=== PATIENT | male | born 1980 | race Caucasian/White ===

== ENCOUNTER 2016-05-25 16:15 | Emergency (ER) | payer OTHER ==
[~2016-05-25] VITALS: Ht 172.7 cm; Wt 75.0 kg
[2016-05-25 16:19] VITALS: BP 117/58; PULSE 70; RESP 15; O2SAT 100
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
== END 2016-05-25 18:58 | disposition home or self-care (01) ==
LOC: SED 16:15 → EDBD 16:15 → SED 18:58
DX: S16.1XXA Strain of muscle, fascia and tendon at neck level, initial encounter (principal); V03.10XA Pedestrian on foot injured in collision with car, pick-up truck or van in traffic accident, initial encounter; Y92.410 Unspecified street and highway as the place of occurrence of the external cause; Y93.89 Activity, other specified; Y99.8 Other external cause status; R51 Headache; M79.602 Pain in left arm; F10.920 Alcohol use, unspecified with intoxication, uncomplicated; F19.20 Other psychoactive substance dependence, uncomplicated; F17.200 Nicotine dependence, unspecified, uncomplicated

== ENCOUNTER 2016-06-08 10:01 | Emergency (ER) | payer OTHER ==
[2016-06-08 10:06] VITALS: BP 113/67; PULSE 63; RESP 18; O2SAT 97
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
[2016-06-08] MEDS ORDERED: LORazepam 2 mg Tablet PO ONE (10:25)
[2016-06-08 11:11] LABS: BASOPHILS % (AUTO) 1.1 % (0-3); EOSINOPHILS % (AUTO) 2.3 % (0-5); MONOCYTES % (AUTO) 7.7 % (4-12); Mean Corpuscular Hemoglobin 31.7 pg (27.0-35.0); Mean Corpuscular Volume 91.6 fL (81-100); NEUTROPHILS % (AUTO) 66.7 % (40-74); Platelet Count 312 bil/L (150-400)
[2016-06-08 19:11] VITALS: BP 124/70; PULSE 86; RESP 16; O2SAT 99
[2016-06-08] MEDS ORDERED: CYCL10TA9 PO (20:51)
[2016-06-08] MEDS ORDERED: EFAV1TAB PO (20:51)
[2016-06-09] MEDS ORDERED: diphenhydrAMINE 50 mg Capsule PO ONE (00:20)
[2016-06-09 03:14] VITALS: BP 111/54; PULSE 61; RESP 15; O2SAT 99
[2016-06-09 06:27] VITALS: BP 124/63; PULSE 77; RESP 16; O2SAT 98
== END 2016-06-09 06:28 | disposition home or self-care (01) ==
LOC: SED 10:01
DX: F15.10 Other stimulant abuse, uncomplicated (principal); F17.200 Nicotine dependence, unspecified, uncomplicated; Z88.0 Allergy status to penicillin

== ENCOUNTER 2016-06-15 22:08 | Emergency (ER) | payer OTHER ==
[~2016-06-15] VITALS: Ht 172.7 cm; Wt 70.5 kg
[~2016-06-15 22:08] MED LIST: CYCL10TA9 PO; EFAV1TAB PO
[2016-06-15 22:11] VITALS: BP 109/84; PULSE 90; RESP 18; O2SAT 100
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
== END 2016-06-16 03:22 | disposition home or self-care (01) ==
LOC: SED 22:08
DX: S16.1XXA Strain of muscle, fascia and tendon at neck level, initial encounter (principal); S20.222A Contusion of left back wall of thorax, initial encounter; Y04.0XXA Assault by unarmed brawl or fight, initial encounter; Y93.9 Activity, unspecified; Y92.9 Unspecified place or not applicable; Y99.8 Other external cause status; F17.200 Nicotine dependence, unspecified, uncomplicated; Z88.0 Allergy status to penicillin

== ENCOUNTER 2016-07-06 14:29 | Emergency (ER) | payer OTHER ==
[2016-07-06 14:37] VITALS: BP 114/69; PULSE 70; RESP 16; O2SAT 98
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
[2016-07-06] MEDS ORDERED: Haloperidol 5 mg/mL Inj IM PRN (17:10)
[2016-07-06 17:33] LABS: Mean Corpuscular Hemoglobin 31.2 pg (27.0-35.0); Platelet Count 495 bil/L (150-400)
[2016-07-06 17:49] LABS: BASOPHILS % (AUTO) 0 % (0-3); EOSINOPHILS % (AUTO) 0 % (0-5); MONOCYTES % (AUTO) 2 % (4-12); NEUTROPHILS % (AUTO) 55 % (40-74)
[2016-07-06 19:59] VITALS: BP 102/56; PULSE 64; RESP 20; O2SAT 100
[2016-07-07 06:28] VITALS: BP 106/72; PULSE 80; O2SAT 98
[2016-07-07] MEDS ORDERED: ALPRAZolam 0.5 mg Tablet PO ONE (08:40)
[2016-07-07] MEDS ORDERED: OLANZapine Zydis ODT 5 mg Tablet PO ONE ×2 (08:40)
[2016-07-07 11:27] VITALS: BP 124/75; PULSE 88
== END 2016-07-07 11:25 | disposition home or self-care (01) ==
LOC: SED 14:29
DX: F15.20 Other stimulant dependence, uncomplicated (principal); F17.200 Nicotine dependence, unspecified, uncomplicated; Z88.0 Allergy status to penicillin
CPT/HCPCS: 36415; 80053; 81002; 84443; 85025; 99284; G0480

== ENCOUNTER 2016-07-17 07:47 | Emergency (ER) | payer OTHER ==
[~2016-07-17] VITALS: Ht 170.2 cm; Wt 78.6 kg
[2016-07-17 07:53] VITALS: BP 119/76; PULSE 90; RESP 18; O2SAT 100
--- NOTE | 2016-07-17 08:01 | ED.REPORT ---
HPI-Psychiatric Illness Date of Service Jul 17, 2016 ED Provider: Lashawn Flores MD 35 year old male with a history of methamphetamine abuse and HIV presents to the ER brought in by police for hearing voices and agitation. Patient has a card for [facility] and states that he missed his appointment, and that he has been trespassed and has been unable to shower. He continues to mutter, complaining incomprehensibly. Associated decreased food and fluid intake lately. History is limited due to patient's agitation. Nursing Notes Stated Complaint: PSYCH Chief Complaint: Substance Abuse Nursing Notes Reviewed: Yes Allergies: Coded Allergies: Penicillins (Verified Allergy, Unknown, 06/15/16) Scheduled Efavirenz/Emtricitab/Tenofovir (Atripla) 1 Each Tablet 1 MG PO DAILY Scheduled PRN Cyclobenzaprine (Cyclobenzaprine) 10 Mg Tablet 10 MG PO TID PRN PRN spasms General Time Seen by MD: 08:00 Chief Complaint Bizarre behavior, Hallucinations, auditory Hx Obtained From: Patient, Police Arrived By: Police Onset Occurred: Just prior to arrival Symptom Duration: Since onset Associated with: Reports: Agitation Pertinent Negative: Pt denies other symptoms Related History: Reports: Illicit drug use Similar Sx Previous: Yes Risk-Psychiatric Illness Suicide Risk Stratification Suicide Risk Factors - Adult: : Substance abuse RF Statements: Risk factors reviewed Past Medical History Past Medical History HIV - on Atripla (patient not forthcoming and refused to discusss this issue or other medical conditions) Past Surgical History None reported Smoking History Current Every Day Smoker Social History Alcohol Use: "Social" Drug Use: Meth, THC Other Social History: Local resident Ambulatory Status Independent Review of Systems ROS is limited due to patient's agitation. Psychiatric: Reports: Agitation, Hallucinations, auditory Complete sys rev & neg: except as marked. Physical Exam Initial Vital Signs Vital Signs (First) Date Time Temp Pulse Resp B/P Pulse Ox O2 Delivery O2 Flow Rate FiO2 07/17/16 07:53 36.0 90 18 119/76 100 Room Air Initial VS: Reviewed Head / Eyes: Atraumatic, Normocephalic Neck: Supple, Non-tender, Full range of motion Extremities: Vascular intact, Neuro intact, No swelling, No tenderness General/Constitutional: Awake, Alert, Well developed, Well nourished Behavior: Positive: Agitated Neurologic: Oriented X3, Speech NL, No motor deficits, No sensory deficits Able to ambulate without difficulty. Psychiatric: Not suicidal, Not homicidal, Cognitive function NL Agitated. Pacing. No eye contact. Respiratory / Chest: Breath sounds NL, Breath sounds = bilat, No respiratory distress, No rales, No rhonchi, No wheezing Cardiovascular: Regular rhythm, Heart sounds NL, Peripheral circulation NL Heart Rate / Rhythm: Positive: Tachycardia Wrist / Hand: Full range of motion, Neurologic intact, Vascular intact 1 cm laceration to the Right distal forefinger. Dirty, but not requiring sutures. I have asked him to clean the wound thoroughly. Ankle / Foot: Full range of motion, Neurologic intact, Vascular intact Mild erythema overlying the medial aspect of right ankle, outlined with pen previously, well within the lines. Interpretation & Diagnostics Interpretation & Diagnostics: utox: meth and benzo Lab Results Interpretation Test 07/17/16 09:52 Hold Urine Received (Received) Re-Eval/Medical Decision Re-Evaluation/Progress #1: Time of Eval: 08:35 Re-Evaluation/Progress Note: Face to face evaluation. Patient has become increasingly agitated, responding to external stimuli. Dangerous to himself and others. Code morris called, patient escorted to P1. Seclusion orders placed. Declined breathalyzer and declined voiding for urinalysis. Re-Evaluation/Progress #2: Time of Eval: 15:39 )( Re-Eval Psychiatric: No danger to self, No danger to others, No suicidal ideation, No homicidal ideation Patient Status: Condition improved Re-Evaluation/Progress Note: Appropriate good eye contact interactive name of his previous behavior is exhibited. Certainly safe for discharge home. 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 He had some Zyprexa in the emergency department, was able to sleep for a few hours, have gotten some food, and are much improved. Methamphetamine is quite literally making you crazy and will kill you. I hope you are able to remain sober and get on with the rest of your life I wish you the best Referrals: [facility] (PCP) Scribe Attestation Portions of this note were transcribed by Ollie No. I, Dr. Flores, personally performed the history, physical exam and medical decision-making; I reviewed and confirmed the accuracy of the information in the transcribed note. Signed by: Saad Ng, 07/17/2016 and 13:10 Lashawn Flores MD Jul 17, 2016 08:00 OLLIE NO Jul 17, 2016 08:04
[2016-07-17] MEDS ORDERED: LORazepam 2 mg Tablet PO ONE (08:20)
[2016-07-17] MEDS ORDERED: OLANZapine Zydis ODT 5 mg Tablet PO ONE (08:35)
[2016-07-17 11:41] VITALS: BP 113/66; PULSE 53; RESP 16; O2SAT 99
[2016-07-17 16:29] VITALS: BP 122/85; PULSE 115; RESP 22; O2SAT 99
== END 2016-07-17 16:07 | disposition home or self-care (01) ==
LOC: SED 07:47
DX: F15.10 Other stimulant abuse, uncomplicated (principal); F09 Unspecified mental disorder due to known physiological condition; F17.200 Nicotine dependence, unspecified, uncomplicated; B20 Human immunodeficiency virus [HIV] disease; Z88.0 Allergy status to penicillin

== ENCOUNTER 2016-08-04 16:55 | Emergency (ER) | payer OTHER ==
[~2016-08-04] VITALS: Ht 165.1 cm; Wt 62.7 kg
[2016-08-04 17:10] VITALS: BP 99/63; PULSE 73; RESP 17; O2SAT 98
--- NOTE | 2016-08-04 17:32 | ED.REPORT ---
[facility]-Medical Clearance Date of Service Aug 04, 2016 ED Provider: Jermain Jordan PA-C Manuel is a 35-year-old male brought in for medical clearance to [facility]. There is concern regarding the condition of his feet. The patient states a painful, that he is homeless has been sleeping outside. Admits to methamphetamine use. He says that his feet have been wet "off and on." He is a somewhat difficult and scattered historian, but listed diagnosis of bipolar disorder as well as HIV. He states he is up-to-date on his medications. Nursing Notes Stated Complaint: FIT FOR SHELTER Chief Complaint: General Complaint Nursing Notes Reviewed: Yes Allergies: Coded Allergies: Penicillins (Verified Allergy, Unknown, 06/15/16) Scheduled Efavirenz/Emtricitab/Tenofovir (Atripla) 1 Each Tablet 1 MG PO DAILY Scheduled PRN Cyclobenzaprine (Cyclobenzaprine) 10 Mg Tablet 10 MG PO TID PRN PRN spasms General Time Seen by Provider: 17:13 Chief Complaint : Other (foot pain) Past Medical History Past Medical History HIV - on Atripla (patient not forthcoming and refused to discusss this issue or other medical conditions) Past Surgical History None reported Smoking History Current Every Day Smoker Social History Alcohol Use: "Social" Drug Use: Meth, THC Other Social History: Local resident Ambulatory Status Independent Review of Systems Review of Systems Note: Negative unless stated otherwise in history of present illness Physical Exam General: Well appearing, well developed, well nourished, no acute distress. Feet: Extensive areas of blanched callus on the plantar surface of all toes as well as MCP joints and heels. Surrounded by mild erythema. Negative edema or swelling. DP and PT pulses appreciated bilaterally. Head: Atraumatic, normocephalic. Eyes: No scleral icterus or injection. No discharge. Vision grossly intact. ENT: Voice clear, hearing grossly intact. Respiratory: Regular rate and rhythm. Breath sounds present, clear to auscultation and equal bilaterally. No respiratory distress. No increased work of breathing, speaks in complete sentences. Cardiovascular: Regular rate and rhythm, without murmur, gallop or rub. No pedal edema. Skin: Warm and dry. Neurological: Grossly nonfocal. Psychological: Alert and oriented. Speech appropriate, linear and logical. Behavior appropriate. Initial Vital Signs Vital Signs (First) Date Time Temp Pulse Resp B/P Pulse Ox O2 Delivery O2 Flow Rate FiO2 08/04/16 17:10 36.7 73 17 99/63 98 Room Air Initial VS: Reviewed, Vital signs normal Re-Eval/Medical Decision Med Decision/Clinical Course 35-year-old male with a history of substance abuse, bipolar disorder and HIV presents for clearance to [facility]. Return by the condition of his feet. Soles of his feet appear quite blanched macerated. There is some surrounding erythema. Mild tenderness. I believe this is most likely trench foot secondary to his homelessness and chronically wet feet. I do not believe this is cellulitis. Medically cleared for [facility]. Discharge & Departure Impression: Primary Impression: Immersion (trench) foot Encounter type: initial encounter Laterality: unspecified laterality Qualified Code: T69.029A - Immersion foot, unspecified foot, initial encounter Disposition: Home Discharge Condition All VS Reviewed: Yes Condition: Stable Additional Instructions: Evaluation in the emergency department for medical clearance for custody. You appear to have a fairly severe case of Immersion (trench) foot. This is caused by wearing wet shoes too long in cold weather. The treatment is to keep your feet warm and dry at all times. The pain is best treated with 400 mg of ibuprofen (Advil, Motrin) every 6 hours , or 1000 mg of acetaminophen (Tylenol) every 6 hours. These drugs can be taken at the same time for more severe pain. You are medically cleared for incarceration. Seek care at the [facility] if pain, redness, swelling increases or if you develop a fever. Return to emergency department for any new or worsening symptoms. Referrals: [facility] (PCP) EDS[facility]vising Provider for APC: Ezra Will MD, Seth PA-C Aug 04, 2016 17:32
== END 2016-08-04 17:58 | disposition home or self-care (01) ==
LOC: SED 16:55
DX: T69.029A Immersion foot, unspecified foot, initial encounter (principal); X58.XXXA Exposure to other specified factors, initial encounter; Y93.89 Activity, other specified; Y92.410 Unspecified street and highway as the place of occurrence of the external cause; Y99.8 Other external cause status; F31.9 Bipolar disorder, unspecified; F17.200 Nicotine dependence, unspecified, uncomplicated; Z59.0 Homelessness; Z02.89 Encounter for other administrative examinations; Z88.8 Allergy status to other drugs, medicaments and biological substances

== ENCOUNTER 2016-09-20 22:29 | Emergency (ER) | payer OTHER ==
[~2016-09-20] VITALS: Ht 175.3 cm; Wt 77.3 kg
[2016-09-20 22:31] VITALS: BP 110/75; PULSE 103; RESP 16; O2SAT 98
--- NOTE | 2016-09-20 23:11 | ED.REPORT ---
HPI-General Illness Date of Service September 20, 2016 ED Provider: Caesar Oglesby MD A 35 year old male with a history of HIV, substance abuse, and bipolar disorder presents to the ED requesting Xanax and tramadol prescription refills for his back pain and anxiety. The patient has not had these medications since he went to senior care two months ago, where he stayed for 38 days. He was previously getting his medications in [place], then moved here and was seen by Dr. Bolden. He is now in the process of establishing new outpatient care and has an appointment at [facility] on 10/17/16. The patient reports that his last methamphetamine use was 08/04/16. He denies other symptoms. Nursing Notes Stated Complaint: NEEDS MEDS Chief Complaint: General Complaint Nursing Notes Reviewed: Yes Allergies: Coded Allergies: Penicillins (Verified Allergy, Unknown, 09/20/16) Scheduled Efavirenz/Emtricitab/Tenofovir (Atripla) 1 Each Tablet 1 MG PO DAILY Scheduled PRN Alprazolam (Xanax) 0.5 Mg Tablet 0.5 MG PO BID PRN PRN For Anxiety Cyclobenzaprine (Cyclobenzaprine) 10 Mg Tablet 10 MG PO TID PRN PRN spasms Tramadol (Tramadol) 50 Mg Tablet 50 MG PO BID PRN PRN For Pain General Time Seen by MD: 22:57 Chief Complaint Medication refill Hx Obtained From: Patient Arrived By: Walk-in Sudden in Onset?: No Onset Occurred: More than a week ago... (2 months) Symptom Duration: Since onset Location: : Back Quality: Painful Severity: Current: Moderate Severity: Maximum: Moderate Pertinent Negative: Relieved by nothing Context Related History: Reports Psychiatric history Recent Healthcare: No recent doctor visit Past Medical History Past Medical History HIV - on Atripla (patient not forthcoming and refused to discusss this issue or other medical conditions) Substance abuse Bipolar disorder Back pain Past Surgical History None reported Smoking History Current Every Day Smoker Social History Alcohol Use: "Social" Drug Use: Meth, THC Other Social History: Local resident Ambulatory Status Independent Review of Systems + Medication refill request Full Review of Systems Constitutional: Denies: Fever Respiratory: Denies: Non-productive cough, Shortness of breath GI: Denies: Diarrhea, Vomiting Musculoskeletal: Reports: Back pain Psychiatric: Reports: Anxiety Complete sys rev & neg: except as marked. Physical Exam Vital Signs Vital Signs Date Time Temp Pulse Resp B/P Pulse Ox O2 Delivery O2 Flow Rate FiO2 09/21/16 00:01 36.7 103 16 110/75 98 09/20/16 22:31 36.7 103 16 110/75 98 Initial VS: Reviewed, Vital signs normal Head / Eyes: Atraumatic, Normocephalic ENT: Conjunctiva normal, No scleral icterus Neck: Supple, Full range of motion Respiratory: Breath sounds normal, Clear to auscultation, No respiratory distress Cardiovascular: Regular rate & rhythm, Heart sounds normal Skin: Warm, Dry, No cyanosis Neurologic: Alert, Oriented, Nonfocal General/Constitutional: Awake, Alert Psychiatric: Not suicidal, Not homicidal Abnormal Mood/Affect: Positive: Pressured speech Hyperactive Mild angry outbursts Not psychotic Interpretation & Diagnostics URINE DRUG SCREEN: + Marijuana + Methamphetamine + Amphetamines Otherwise Negative Lab Results Interpretation Test 09/20/16 23:34 Hold Urine Received (Received) Re-Eval/Medical Decision Med Decision/Clinical Course 35-year-old male who spent 39 days in senior care. His previous prescriber for Xanax and tramadol is at the [facility] in [place] and he is unable to access that clinic. All of his medications were confiscated when he was arrested and now he is without his Xanax and tramadol. He seems to be having a bit of trouble "holding it together". He does have his other medications including Depakote and Atripla. He has a new appointment with Dr. Couch at the [facility] here in [place], but no medication to last until that time. Source of Hx: Old records Time of Eval: 23:54 Patient Status: Condition improved Re-Evaluation/Progress Note: Discussed with patient urine results, diagnosis, and plan for discharge. He now admits to using methamphetamines recently. Follow-up and return to the ER instructions given. Patient agrees with plan for care and all questions were addressed. Counseled Regarding: Diagnosis, Lab results, Need for follow-up, When/why to return to ED Discharge & Departure Primary Impression: Medication refill Disposition: Home Discharge Condition All VS Reviewed: Yes Condition: Improved Additional Instructions: Xanax 0.5 mg once or twice daily, #45. Tramadol 50 mg once or twice daily, # 45. Follow up with [facility] as planned. Referrals: Concepción Couch MD (PCP) Scribe Attestation Portions of this note were transcribed by Rocío Saez. I, Dr. Oglesby, personally performed the history, physical exam, and medical decision-making; I reviewed and confirmed the accuracy of the information in the transcribed note. Signed by: Saad Luna, 09/21/2016, 01:20 copies to: Concepción Couch MD, Howard L MD September 20, 2016 23:11 ROCÍO SAEZ September 20, 2016 23:18
[2016-09-20] MEDS ORDERED: ALPRAZolam 0.5 mg Tablet PO ONE (23:20)
[2016-09-20] MEDS ORDERED: TRAM50TA2 PO (23:48)
[2016-09-20] MEDS ORDERED: ALPR0.5T PO (23:48)
[2016-09-21 00:01] VITALS: BP 110/75; PULSE 103; RESP 16; O2SAT 98
== END 2016-09-21 00:01 | disposition home or self-care (01) ==
LOC: SED 22:29
DX: Z76.0 Encounter for issue of repeat prescription (principal); F21 Schizotypal disorder; F17.200 Nicotine dependence, unspecified, uncomplicated; Z88.0 Allergy status to penicillin

== ENCOUNTER 2016-09-30 11:06 | Emergency (ER) | payer OTHER ==
[~2016-09-30 11:06] MED LIST changes: +ALPR0.5T PO; +TRAM50TA2 PO
[2016-09-30 11:16] VITALS: BP 114/71; PULSE 80; RESP 16; O2SAT 98
--- NOTE | 2016-09-30 11:33 | ED.REPORT ---
HPI-General Illness Date of Service September 30, 2016 ED Provider: Josh Salinas MD A 35 year old male with a history of frequent ED visits, HIV, polysubstance abuse, and bipolar disorder presents to the ED requesting an Atripla prescription refill for his HIV. He reports that has an appointment schedule with his primary care physician in the next 2 weeks and is seeking a prescription refill at this time. Patient was seen in the ED on 09/20 seeking a refill for his Xanax and tramadol. He denies any other medical complaints at this time. Nursing Notes Stated Complaint: EVAL/OUT OF MEDICATION Chief Complaint: General Complaint Nursing Notes Reviewed: Yes Allergies: Coded Allergies: Penicillins (Verified Allergy, Unknown, 09/20/16) Scheduled Efavirenz/Emtricitab/Tenofovir (Atripla) 1 Each Tablet 1 MG PO DAILY Efavirenz/Emtricitab/Tenofovir (Atripla) 1 Each Tablet 1 TABLET PO DAILY Scheduled PRN Alprazolam (Xanax) 0.5 Mg Tablet 0.5 MG PO BID PRN PRN For Anxiety Cyclobenzaprine (Cyclobenzaprine) 10 Mg Tablet 10 MG PO TID PRN PRN spasms Tramadol (Tramadol) 50 Mg Tablet 50 MG PO BID PRN PRN For Pain General Time Seen by MD: 11:32 Chief Complaint Medication refill Hx Obtained From: Patient Arrived By: Walk-in Sudden in Onset?: No Onset Occurred: Onset unknown Context of Onset: Ran out of medication Symptom Duration: Duration unknown Pertinent Negative: Pt denies other symptoms Recent Healthcare: No recent hospitalization, Recent doctor visit Past Medical History Past Medical History HIV - on Atripla (patient not forthcoming and refused to discusss this issue or other medical conditions) Substance abuse Bipolar disorder Back pain Past Surgical History None reported Smoking History Current Every Day Smoker Social History Alcohol Use: "Social" Drug Use: Meth, THC Other Social History: Frequent ED visitor, Local resident Ambulatory Status Independent Review of Systems Seeking medication refill Complete sys rev & neg: except as marked. Physical Exam Vital Signs Vital Signs Date Time Temp Pulse Resp B/P Pulse Ox O2 Delivery O2 Flow Rate FiO2 09/30/16 11:16 36.8 80 16 114/71 98 Room Air Initial VS: Reviewed Neck: Supple, Non-tender, Full range of motion Extremities: No swelling Skin: Warm, Dry, No cyanosis Neurologic: Alert, Oriented, Nonfocal Psychiatric: Mood/affect normal, Behavior normal, Normal thought content General/Constitutional: Awake, Alert, No acute distress Head / Eyes: Atraumatic, Normocephalic Respiratory / Chest: Atraumatic, No respiratory distress Cardiovascular: Peripheral circulation NL Abdomen: Atraumatic Upper Extremities Upper Extremity / MS: Atraumatic, Neurologic intact, Vascular intact Lower Extremity / Pelvis / MS: Atraumatic, Neurologic intact, Vascular intact Re-Eval/Medical Decision Time of Eval: 11:37 Patient Status: Condition improved Re-Evaluation/Progress Note: He understands and agrees with the intended treatment plan. Counseled Regarding: Diagnosis, Need for follow-up, When/why to return to ED Discharge & Departure Primary Impression: Medication refill Disposition: Home Discharge Condition All VS Reviewed: Yes Condition: Improved Additional Instructions: Please take Atripla as directed. Prescription was sent to [facility] in [place]. Follow up as planned next month with Dr. Couch. Please return to the emergency department if you develop any new or worsening symptoms. Referrals: Concepción Couch MD (PCP) Scribe Attestation Portions of this note were transcribed by Melissa Pinzon. I, Dr. Salinas personally performed the history, physical exam and medical decision-making; I reviewed and confirmed the accuracy of the information in the transcribed note. Signed by: Saad Cherry, 09/30/16 1205. copies to: Concepción Couch MD, Kirk H MD September 30, 2016 11:33 MELISSA PINZON September 30, 2016 11:39
[2016-09-30] MEDS ORDERED: EFAV1TAB PO ×2 (11:40→11:42)
== END 2016-09-30 12:09 | disposition home or self-care (01) ==
LOC: SED 11:06
DX: Z76.0 Encounter for issue of repeat prescription (principal); F19.20 Other psychoactive substance dependence, uncomplicated; F31.9 Bipolar disorder, unspecified; F17.200 Nicotine dependence, unspecified, uncomplicated; Z21 Asymptomatic human immunodeficiency virus [HIV] infection status; Z88.0 Allergy status to penicillin

== ENCOUNTER 2016-10-04 15:55 | Emergency (ER) | payer OTHER ==
[2016-10-04 16:19] VITALS: BP 120/61; PULSE 83; O2SAT 96
--- NOTE | 2016-10-04 17:46 | ED.REPORT ---
HPI-Psychiatric Illness Date of Service October 04, 2016 ED Provider: Jermain Jordan PA-C Manuel is a 35-year-old male with history of bipolar disorder and methamphetamine abuse who presents ostensibly seeking a medication refill. States that he slept and was last night and somebody stole his Atripla. He has no other complaints. Denies suicidal ideation, methamphetamine use. He presents with a clinical social worker from the police department who became concerned for his safety when he was found wandering in traffic. Reports the patient has been talking to himself and acting bizarrely. Nursing Notes Stated Complaint: MENTAL MEDS Chief Complaint: General Complaint Nursing Notes Reviewed: Yes Allergies: Coded Allergies: Penicillins (Verified Allergy, Unknown, 09/20/16) Scheduled Efavirenz/Emtricitab/Tenofovir (Atripla) 1 Each Tablet 1 MG PO DAILY Efavirenz/Emtricitab/Tenofovir (Atripla) 1 Each Tablet 1 TABLET PO DAILY Efavirenz/Emtricitab/Tenofovir (Atripla) 1 Each Tablet 1 TABLET PO DAILY Scheduled PRN Alprazolam (Xanax) 0.5 Mg Tablet 0.5 MG PO BID PRN PRN For Anxiety Cyclobenzaprine (Cyclobenzaprine) 10 Mg Tablet 10 MG PO TID PRN PRN spasms Tramadol (Tramadol) 50 Mg Tablet 50 MG PO BID PRN PRN For Pain General Time Seen by MD: 17:00 Chief Complaint Bizarre behavior Risk-Psychiatric Illness Suicide Risk Stratification RF Statements: Risk factors N/A Past Medical History Past Medical History HIV - on Atripla (patient not forthcoming and refused to discusss this issue or other medical conditions) Substance abuse Bipolar disorder Back pain Past Surgical History None reported Smoking History Current Every Day Smoker Social History Alcohol Use: "Social" Drug Use: Meth, THC Other Social History: Frequent ED visitor, Local resident Ambulatory Status Independent Review of Systems Review of Systems Note: Negative unless stated otherwise in history of present illness Physical Exam General: Well appearing, well developed, well nourished, no acute distress. Head: Atraumatic, normocephalic. Eyes: No scleral icterus or injection. No discharge. Vision grossly intact. ENT: Voice clear, hearing grossly intact. Respiratory: No respiratory distress, no increased work of breathing. Speaks in complete sentences. Skin: Warm and dry. Neurological: Grossly nonfocal. Psychological: alert and oriented. Speech tangential, occasionally bizarre and pressured. Appears to be responding to internal stimuli. Initial Vital Signs Vital Signs (First) Date Time Temp Pulse Resp B/P Pulse Ox O2 Delivery O2 Flow Rate FiO2 10/04/16 16:19 36.3 83 120/61 96 Room Air Initial VS: Vital signs normal Interpretation & Diagnostics Interpretation & Diagnostics: U tox dip positive for THC and methamphetamine. Lab Results Interpretation Test 10/04/16 17:50 Hold Urine Received (Received) Re-Eval/Medical Decision Med Decision/Clinical Course 35-year-old male well-known to this department with a history of bipolar disorder and methamphetamine abuse presents for refill of his HIV medications. He presents in the company of police department clinical social worker was concerned about his recent bizarre behavior including walking into traffic. Patient states he has no concerns other than his HIV medication, which he states was stolen volume sleeping in the [place] last night. Denies suicidal ideation. Brief physical examination is benign, though the patient does have slightly pressured speech, bizarre content, and apparent response to external stimuli. Urine tox dip was positive for THC and methamphetamine. I discussed this case with VICTOR HUGO العراقي who discussed the case with the police clinical social worker. They feel that his behavior is primarily due to methamphetamine use, and that he should not be detained. He is not thought to be suicidal or gravely disabled. I provided his medication refill, though it is likely this will be difficult to fill due to insurance constraints. Advised that he should make a police report regarding the stolen medications. Advise primary care follow-up, arranged and return precautions. Patient verbalizes understanding of and consent to plan. Discharge & Departure Impression: Primary Impression: Medication refill Additional Impression: Methamphetamine abuse Disposition: Home Discharge Condition All VS Reviewed: Yes Condition: Stable Additional Instructions: [facility] seeking medication refill. I am happy to provide you with a prescription. However you should be aware that you may have difficulty getting your insurance company to pay for it. It may be helpful to file a police report and report it as stolen. Your team at [facility] may be able to help with this. Important is important that you stop using methamphetamine. This is bad for your health and your life in general. Please follow up with Dr. Couch as soon as possible. Return to emergency department for any new or worsening symptoms including a compulsion act on thoughts of harming yourself or others, visual or auditory hallucinations. Referrals: Concepción Couch MD (PCP) EDSupervising Provider for APC: Josh Salinas MD copies to: Concepción Couch MD, Seth PA-C October 04, 2016 17:46
[2016-10-04] MEDS ORDERED: EFAV1TAB PO (18:50)
== END 2016-10-04 19:45 | disposition home or self-care (01) ==
LOC: SED 15:55
DX: F15.29 Other stimulant dependence with unspecified stimulant-induced disorder (principal); F31.9 Bipolar disorder, unspecified; F17.200 Nicotine dependence, unspecified, uncomplicated; Z76.0 Encounter for issue of repeat prescription; Z21 Asymptomatic human immunodeficiency virus [HIV] infection status; Z88.0 Allergy status to penicillin

== ENCOUNTER 2016-10-16 12:31 | Emergency (ER) | payer OTHER ==
[~2016-10-16] VITALS: Ht 172.7 cm; Wt 72.0 kg
[2016-10-16 12:32] VITALS: BP 115/70; PULSE 70; RESP 16; O2SAT 98
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
[2016-10-16] MEDS ORDERED: CLIN-78 PO (14:47)
[2016-10-16] MEDS ORDERED: MUPI22OI2 TOP (14:56)
[2016-10-16 15:40] VITALS: BP 128/69; PULSE 81; RESP 17; O2SAT 99
[2016-10-16] MEDS ORDERED: LORA1TAB PO (16:25)
[2016-10-16 20:05] VITALS: BP 111/67; PULSE 62; RESP 14; O2SAT 100
== END 2016-10-16 20:25 | disposition home or self-care (01) ==
LOC: SED 12:31
DX: F42.4 Excoriation (skin-picking) disorder (principal); B07.0 Plantar wart; F15.20 Other stimulant dependence, uncomplicated; F31.9 Bipolar disorder, unspecified; F41.9 Anxiety disorder, unspecified; F17.200 Nicotine dependence, unspecified, uncomplicated; Z21 Asymptomatic human immunodeficiency virus [HIV] infection status; Z59.0 Homelessness; Z88.0 Allergy status to penicillin

== ENCOUNTER 2016-10-26 21:00 | Emergency (ER) | payer OTHER ==
[~2016-10-26 21:00] MED LIST changes: +LORA1TAB PO; +MUPI22OI2 TOP
[2016-10-26 21:10] VITALS: BP 109/64; PULSE 83; RESP 16; O2SAT 99
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
[2016-10-26] MEDS ORDERED: QUET100T69 PO (22:14)
[2016-10-26] MEDS ORDERED: OLAN20TA16 PO (22:14)
== END 2016-10-26 22:37 | disposition home or self-care (01) ==
LOC: SED 21:00
DX: F15.20 Other stimulant dependence, uncomplicated (principal); Z88.0 Allergy status to penicillin; F17.200 Nicotine dependence, unspecified, uncomplicated; B20 Human immunodeficiency virus [HIV] disease; F31.9 Bipolar disorder, unspecified

== ENCOUNTER 2016-11-05 02:45 | Emergency (ER) | payer OTHER ==
[~2016-11-05] VITALS: Ht 172.7 cm; Wt 72.7 kg
[~2016-11-05 02:45] MED LIST changes: +OLAN20TA16 PO; +QUET100T69 PO
[2016-11-05 02:53] VITALS: BP 115/71; PULSE 80; RESP 20; O2SAT 99
[2016-11-05] MEDS ORDERED: Tetracaine 0.5% 4 mL Ophthalmic Solution ONE (03:21)
[2016-11-05] MEDS ORDERED: Fluorescein 0.6 mg Ophthalmic Strip ONE (03:22)
[2016-11-05] MEDS ORDERED: 0.9% Sodium Chloride Inhalation Solution ONE (03:22)
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
[2016-11-05 07:09] VITALS: BP 100/57; PULSE 64; RESP 18; O2SAT 99
== END 2016-11-05 07:11 | disposition home or self-care (01) ==
LOC: EDBD 02:45 → SED 02:45
DX: H57.12 Ocular pain, left eye (principal); F15.10 Other stimulant abuse, uncomplicated; B20 Human immunodeficiency virus [HIV] disease; F31.9 Bipolar disorder, unspecified; F17.200 Nicotine dependence, unspecified, uncomplicated; Z88.0 Allergy status to penicillin